=== PATIENT | male | born 2000 | race Hispanic/Latino ===

== ENCOUNTER 2020-05-25 18:56 | Emergency (ER) | payer BC ==
[2020-05-25] MEDS ORDERED: TETANUS & DIPHTHERIA TOX,ADULT 0.5 ML VIAL ONE (19:31)
--- NOTE | 2020-05-25 19:47 | RAD REPORT ---
EXAM DESCRIPTION: RAD - Foot Left 2 View - 05/25/2020 7:41 pm CLINICAL HISTORY: Left Foot pain FINDINGS: No fracture or dislocation is seen. A radiopaque foreign body is not seen
--- NOTE | 2020-05-25 19:50 | EDPHYS ---
Physician Documentation [facility] Name: Javon Jensen Age: 19 yrs Sex: Male : 2000 Arrival Date: 05/25/2020 Time: 18:59 Bed 7 Private MD: ED Physician Brennon Miller HPI: 05/25 21:07 This 19 yrs old Male presents to ER via Ambulatory with complaints of Stepped kb on nail. 21:07 The patient presents with an injury, pain, that is acute, a puncture wound, from a kb nail. The complaints affect the left foot. Context: The problem was sustained at home, resulted from the patient stepping on a nail, the patient can fully bear weight, the patient is able to ambulate. Onset: The symptoms/episode began/occurred just prior to arrival. Modifying factors: The symptoms are alleviated by nothing, the symptoms are aggravated by nothing. Associated signs and symptoms: The patient has no apparent associated signs or symptoms. Severity of symptoms: At their worst the symptoms were mild, in the emergency department the symptoms are unchanged. The patient has not experienced similar symptoms in the past. The patient has not recently seen a physician. Historical: - Allergies: 19:06 No Known Allergies; jd3 - Home Meds: 19:06 None [Active]; jd3 - PMHx: 19:06 None; jd3 - PSHx: 19:06 None; jd3 - Immunization history:: Adult Immunizations unknown, Last tetanus immunization: < 10 years ago. - Social history:: Smoking status: Reported history of juuling and/or vaping. ROS: 20:38 Constitutional: Negative for fever, chills, and weight loss, Cardiovascular: Negative kb for chest pain, palpitations, and edema, Respiratory: Negative for shortness of breath, cough, wheezing, and pleuritic chest pain, Abdomen/GI: Negative for abdominal pain, nausea, vomiting, diarrhea, and constipation, MS/Extremity: Negative for injury and deformity, Neuro: Negative for headache, weakness, numbness, tingling, and seizure. 20:38 Skin: Positive for puncture, of the arch of left foot. Exam: 20:40 Constitutional: This is a well developed, well nourished patient who is awake, alert, kb and in no acute distress. Head/Face: Normocephalic, atraumatic. Chest/axilla: Normal chest wall appearance and motion. Nontender with no deformity. No lesions are appreciated. Cardiovascular: Regular rate and rhythm with a normal S1 and S2. No gallops, murmurs, or rubs. Normal PMI, no JVD. No pulse deficits. Respiratory: Lungs have equal breath sounds bilaterally, clear to auscultation and percussion. No rales, rhonchi or wheezes noted. No increased work of breathing, no retractions or nasal flaring. Abdomen/GI: Soft, non-tender, with normal bowel sounds. No distension or tympany. No guarding or rebound. No evidence of tenderness throughout. MS/ Extremity: Pulses equal, no cyanosis. Neurovascular intact. Full, normal range of motion. Neuro: Awake and alert, GCS 15, oriented to person, place, time, and situation. Cranial nerves II-XII grossly intact. Motor strength 5/5 in all extremities. Sensory grossly intact. Cerebellar exam normal. Normal gait. 20:40 Skin: injury, puncture(s), that are superficial, of the arch of left foot. Vital Signs: 19:06 BP 132 / 73; Pulse 82; Resp 17 S; Temp 97.4(O); Pulse Ox 100% on R/A; Weight 110.22 kg jd3 (R); Height 6 ft. 0 in. (182.88 cm) (R); Pain 5/10; 19:06 Body Mass Index 32.96 (110.22 kg, 182.88 cm) jd3 MDM: 19:08 Patient medically screened. kb 20:39 Data reviewed: vital signs, nurses notes. Data interpreted: Pulse oximetry: on room air kb is 100 %. Interpretation: normal. Counseling: I had a detailed discussion with the patient and/or guardian regarding: the historical points, exam findings, and any diagnostic results supporting the discharge/admit diagnosis, radiology results, the need for outpatient follow up, a family practitioner, to return to the emergency department if symptoms worsen or persist or if there are any questions or concerns that arise at home. 05/25 19:10 Order name: Foot Left 2 View XRAY; Complete Time: 19:51 kb Administered Medications: 19:23 Drug: Tetanus-Diphtheria Toxoid Adult 0.5 ml {Log Hauler: [employer]. Exp: ea 11/06/2022. Lot #: [id number]. } Route: IM; Site: right deltoid; 19:59 Follow up: Response: No adverse reaction ea Disposition: 05/25/20 19:50 Discharged to Home. Impression: Puncture wound without foreign body of foot. - Condition is Stable. - Discharge Instructions: Puncture Wound, [id number]. - Medication Reconciliation Form, Thank You Letter, Antibiotic Education, Prescription Opioid Use form. - Follow up: Emergency Department; When: As needed; Reason: Worsening of condition. Follow up: Private Physician; When: 2 - 3 days; Reason: Recheck today's complaints, Continuance of care, Re-evaluation by your physician. Signatures: Dispatcher [employer] EDDestiny Raza, PHARMACY ASSOCIATE-C PHARMACY ASSOCIATE-Brook Casey, RN Abdirizak Drake ea RN RN jd3 Corrections: (The following items were deleted from the chart) 20:00 19:50 05/25/2020 19:50 Discharged to Home. Impression: Puncture wound without foreign ea body of foot. Condition is Stable. Forms are Medication Reconciliation Form, Thank You Letter, Antibiotic Education, Prescription Opioid Use. Follow up: Emergency Department; When: As needed; Reason: Worsening of condition. Follow up: Private Physician; When: 2 - 3 days; Reason: Recheck today's complaints, Continuance of care, Re-evaluation by your physician. kb 20:39 20:38 Skin: Positive for puncture, kb kb
--- NOTE | 2020-05-25 19:50 | ER ---
Nurse's Notes [facility] Name: Javon Jensen Age: 19 yrs Sex: Male : 2000 Arrival Date: 05/25/2020 Time: 18:59 Bed 7 Private MD: Diagnosis: Puncture wound without foreign body of foot Presentation: 05/25 19:04 Chief complaint: Patient states: "I stepped on a nail while working outside.". jd3 Coronavirus screen: At this time, the client does not indicate any symptoms associated with coronavirus-19. Ebola Screen: Patient negative for fever greater than or equal to 101.5 degrees Fahrenheit, and additional compatible Ebola Virus Disease symptoms. Initial Sepsis Screen: Does the patient meet any 2 criteria? No. Patient's initial sepsis screen is negative. Does the patient have a suspected source of infection? No. Patient's initial sepsis screen is negative. Risk Assessment: Do you want to hurt yourself or someone else? Patient reports no desire to harm self or others. Onset of symptoms was May 25, 2020. 19:04 Method Of Arrival: Ambulatory jd3 19:04 Acuity: OPAL 3 jd3 Historical: - Allergies: 19:06 No Known Allergies; jd3 - Home Meds: 19:06 None [Active]; jd3 - PMHx: 19:06 None; jd3 - PSHx: 19:06 None; jd3 - Immunization history:: Adult Immunizations unknown, Last tetanus immunization: < 10 years ago. - Social history:: Smoking status: Reported history of juuling and/or vaping. Screenin:22 Abuse screen: Denies threats or abuse. Nutritional screening: No deficits noted. ea Tuberculosis screening: No symptoms or risk factors identified. Fall Risk None identified. Assessment: 19:21 General: Appears in no apparent distress. Behavior is appropriate for age. Pain: ea Complains of pain in right foot. Neuro: Level of Consciousness is awake, alert, obeys commands, Oriented to person, place, time. Cardiovascular: Patient's skin is warm and dry. Respiratory: Airway is patent Respiratory effort is even, unlabored, Respiratory pattern is regular, symmetrical. Derm: Skin is pink, warm \\T\\ dry. Injury Description: Puncture sustained to right foot. 19:59 Reassessment: Patient and/or family updated on plan of care and expected duration. Pain ea level reassessed. Patient is alert, oriented x 3, equal unlabored respirations, skin warm/dry/pink. Discharge instruction given to patient, verbalized the understanding of instruction. Pt left ED ambulatory tolerating well. Vital Signs: 19:06 BP 132 / 73; Pulse 82; Resp 17 S; Temp 97.4(O); Pulse Ox 100% on R/A; Weight 110.22 kg jd3 (R); Height 6 ft. 0 in. (182.88 cm) (R); Pain 5/10; 19:06 Body Mass Index 32.96 (110.22 kg, 182.88 cm) jd3 ED Course: 18:59 Patient arrived in ED. mr 19:05 Triage completed. jd3 19:06 Arm band placed on. jd3 19:08 Destiny Ni FNP-C is PHCP. kb 19:08 Brennon Miller MD is Attending Physician. kb 19:21 Brook Wharton, NANCY is Primary Nurse. ea 19:22 Patient has correct armband on for positive identification. Bed in low position. Call ea light in reach. Side rails up X2. 19:41 Foot Left 2 View XRAY In Process Unspecified. EDMS 19:58 No provider procedures requiring assistance completed. Patient did not have IV access ea during this emergency room visit. Administered Medications: 19:23 Drug: Tetanus-Diphtheria Toxoid Adult 0.5 ml {Last Picker: [employer] in [place]. Exp: ea 11/06/2022. Lot #: [id number]. } Route: IM; Site: right deltoid; 19:59 Follow up: Response: No adverse reaction ea Outcome: 19:50 Discharge ordered by . kb 19:58 Discharged to home ambulatory. ea 19:58 Condition: stable 19:58 Discharge instructions given to patient, Instructed on discharge instructions, follow up and referral plans. Demonstrated understanding of instructions, follow-up care. 20:00 Patient left the ED. ea Signatures: Dispatcher [employer] EDMS Destiny Ni FNP-C FNP-Mark Shruthi Franz mr Brook Wharton, RN Abdirizak Drake ea, RN RN jedwar
[2020-05-25 20:34] VITALS: BP 132/73; TEMP 97.4; O2SAT 100
== END 2020-05-25 20:00 | disposition home or self-care (01) ==
LOC: ER 18:56
DX: S91.332A Puncture wound without foreign body, left foot, initial encounter (principal); W22.8XXA Striking against or struck by other objects, initial encounter; Y93.9 Activity, unspecified; Y92.9 Unspecified place or not applicable; Z23 Encounter for immunization
CPT/HCPCS: 90471; 90714; 99283